=== PATIENT | male | born 1990 | race Caucasian/White ===

== ENCOUNTER 2018-02-25 05:30 | Emergency (ER) | payer OTHER ==
[~2018-02-25] VITALS: Ht 162.6 cm; Wt 68.0 kg
[~2018-02-25 05:30] MED LIST: AMOX500 PO; Bactrim Ds Tab1 EACH PO; CLON.1; HYDACE5 PO; IBUP600 PO; IBUP800 PO; Keflex500 MG PO; Norco 5-325 Ta1 EACH PO; PENVK500 PO; RISP.25; RXHYDACE PO; TRAM50 PO
[2018-02-25 05:45] LABS: PCO2 Arterial 48.7 mmHg (35-45); PO2 Arterial 74.4 mmHg (80-100); pH Blood Arterial 7.39 (7.35-7.45)
[2018-02-25] MEDS ORDERED: Roxicodone5 MG PO (06:03)
[2018-02-25] MEDS ORDERED: Sm Double Ant28.4 GM TOP (06:03)
== END 2018-02-25 06:30 | disposition home or self-care (01) ==
LOC: ER 05:30
PROVIDERS: Emergency Medicine
DX: T20.20XA Burn of second degree of head, face, and neck, unspecified site, initial encounter (principal); T22.091A Burn of unspecified degree of multiple sites of right shoulder and upper limb, except wrist and hand, initial encounter; R79.89 Other specified abnormal findings of blood chemistry; Z23 Encounter for immunization; J45.909 Unspecified asthma, uncomplicated; F17.200 Nicotine dependence, unspecified, uncomplicated; X08.8XXA Exposure to other specified smoke, fire and flames, initial encounter
CPT/HCPCS: 36600; 71045; 82375; 82803; 90714

== ENCOUNTER 2022-01-01 12:07 | Emergency (ER) | payer OTHER ==
[~2022-01-01] VITALS: Ht 165.1 cm; Wt 72.6 kg
[~2022-01-01 12:07] MED LIST changes: +Roxicodone5 MG PO; +Sm Double Ant28.4 GM TOP
[2022-01-01] MEDS ORDERED: CEPH500 PO (13:02)
== END 2022-01-01 13:14 | disposition home or self-care (01) ==
LOC: ER 12:07
DX: L03.116 Cellulitis of left lower limb (principal); F17.210 Nicotine dependence, cigarettes, uncomplicated
CPT/HCPCS: 73610; 99283-25; A9270